=== PATIENT | female | born 1985 | race Caucasian/White ===

== ENCOUNTER 2020-12-30 17:35 | Day surgery (SDC) | payer BC ==
[2020-12-30] MEDS ORDERED: hydrALAZINE 20 MG/ML VIAL SLOW IVP PRN (17:51)
[2020-12-30 18:55] LABS: Fetal Membranes Rupture No Membranes Rupture (No Rupture)
== END 2020-12-30 19:16 | disposition home or self-care (01) ==
LOC: CSHLD/OP 17:35
PROVIDERS: ATTEND Obstetrics & Gynecology
DX: O99.891 Other specified diseases and conditions complicating pregnancy (principal); O09.523 Supervision of elderly multigravida, third trimester; O99.353 Diseases of the nervous system complicating pregnancy, third trimester; N89.8 Other specified noninflammatory disorders of vagina; G43.909 Migraine, unspecified, not intractable, without status migrainosus; Z3A.37 37 weeks gestation of pregnancy; Z87.59 Personal history of other complications of pregnancy, childbirth and the puerperium; Z86.16 Personal history of COVID-19; Z79.899 Other long term (current) drug therapy; Z98.890 Other specified postprocedural states; Z86.19 Personal history of other infectious and parasitic diseases
CPT/HCPCS: 84112

== ENCOUNTER 2021-01-02 11:52 | Outpatient (CLI) | payer BC ==
[2021-01-02 19:43] LABS: SARS-CoV-2 PCR by NAA Not Detected (NotDetected)
== END 2021-01-02 11:53 | disposition home or self-care (01) ==
LOC: CSHLAB 11:52
PROVIDERS: ATTEND Obstetrics & Gynecology
DX: Z20.822 Contact with and (suspected) exposure to COVID-19 (principal)
CPT/HCPCS: U0003; U0005